=== PATIENT | female | born 1955 | race Caucasian/White ===

== ENCOUNTER → 2017-11-10 14:08 | Outpatient (CLI) | payer BC, SELFPAY | PROVIDERS: Family Provider Family Medicine; PCP Family Medicine; Visit Provider Obstetrics & Gynecology Gynecology | DX: Z12.31 Encounter for screening mammogram for malignant neoplasm of breast (principal) | CPT/HCPCS: 77063; 77067 ==

== ENCOUNTER → 2017-12-08 07:38 | Outpatient (CLI) | payer BC, SELFPAY ==
--- NOTE | 2017-12-08 08:49 | US_ITS ---
STUDY: ULTRASOUND BREAST - LEFT REASON FOR EXAM: Female, 62 years old. Abnormal screening mammogram. TECHNIQUE: Axial and longitudinal images of the LEFT breast were performed with a high resolution ultrasound transducer. COMPARISON: Comparison is made with prior mammogram dated November 10, 2017. Comparison is also made with prior ultrasound of the left breast dated February 10, 2011. FINDINGS: LEFT Breast: Once again, multiple small cysts are seen. The largest measures 7 mm x 8 mm x 4 mm. This is at the 5:00 position breast at 2 cm from nipple. US/Breast Limited Unilateral IMPRESSION: Multiple small cysts. Routine mammographic follow-up is recommended. ASSESSMENT CATEGORY: BIRADS Category 2: Benign. A letter regarding these results will be sent to the patient by the facility within 30 days. Electronically Signed: Alphonse Dozier MD at 9:23 EDT Tel [phone], Service support ,
[2017-12-08 11:06] LABS: Cholesterol 196 mg/dL (200); Glucose 87 mg/dL (74-106); High Density Lipoprotein 47 mg/dL; Thyroid Stim Hormone (TSH) 4.33 uIU/mL (0.358-3.74); Triglycerides 167 mg/dL; Very Low Density Lipoprotein 33 mg/dL (5-40)
== END ==
PROVIDERS: Family Provider Family Medicine; PCP Family Medicine; Visit Provider Obstetrics & Gynecology Gynecology
DX: R92.8 Other abnormal and inconclusive findings on diagnostic imaging of breast (principal); Z13.1 Encounter for screening for diabetes mellitus; Z13.220 Encounter for screening for lipoid disorders; Z13.9 Encounter for screening, unspecified
CPT/HCPCS: 36415; 76642; 80061; 82947; 84443